=== PATIENT | male | born 1995 | race African-American/Black ===

== ENCOUNTER 2017-12-30 09:19 | Emergency (ER) | payer MEDICAID, SELFPAY ==
[2017-12-30] MEDS ORDERED: Acetaminophen 500 MG TAB ONE (10:05)
--- NOTE | 2017-12-30 10:39 | RAD ---
LEFT HAND 3 VIEWS: Date: 12/30/17 HISTORY: Left hand injury. FINDINGS: Joint spaces are preserved. No acute fracture, dislocation, or aggressive osseous erosions. Cortical remodeling of the distal scaphoid pole and well corticated fragmentation of the radial stylo id has the appearance of an old injury. IMPRESSION: No acute osseous abnormalities are demonstrated. POS: [facility]
== END 2017-12-30 10:26 | disposition home or self-care (01) ==
LOC: ERS 09:19
DX: S60.222A Contusion of left hand, initial encounter (principal); F17.210 Nicotine dependence, cigarettes, uncomplicated; W22.03XA Walked into furniture, initial encounter

== ENCOUNTER 2018-03-25 15:33 | Emergency (ER) | payer SELFPAY ==
[2018-03-25] MEDS ORDERED: Ibuprofen 200 MG TAB ONE (16:27)
--- NOTE | 2018-03-25 16:52 | RAD ---
3 VIEWS RIGHT FOOT: Date: 03/25/18 COMPARISON: None. HISTORY: Pain and swelling, foot trauma. FINDINGS: There is no displaced fracture or evidence of dislocation. No radiopaque foreign body or subcutaneous gas. IMPRESSION: No acute osseous abnormality. POS: [facility]
== END 2018-03-25 17:22 | disposition home or self-care (01) ==
LOC: ERS 15:33
DX: M25.571 Pain in right ankle and joints of right foot (principal); F17.210 Nicotine dependence, cigarettes, uncomplicated; W22.8XXA Striking against or struck by other objects, initial encounter

== ENCOUNTER 2018-04-16 16:34 | Emergency (ER) | payer SELFPAY | END 2018-04-16 17:06 | disposition home or self-care (01) | LOC: ERS 16:34 | DX: I10 Essential (primary) hypertension (principal); F17.210 Nicotine dependence, cigarettes, uncomplicated | CPT/HCPCS: 99281 ==

== ENCOUNTER 2018-09-18 11:16 | Emergency (ER) | payer SELFPAY ==
[2018-09-18] MEDS ORDERED: Lidocaine 1% w/Epinephrine 1:100K 20 ML VIAL ONE (11:50)
[2018-09-18] MEDS ORDERED: Lidocaine 1% PF 5 ML VIAL ONE (11:53)
[2018-09-18] MEDS ORDERED: Ibuprofen 800 MG TAB ONE (12:13)
== END 2018-09-18 12:18 | disposition home or self-care (01) ==
LOC: ERS 11:16
DX: L02.01 Cutaneous abscess of face (principal); F17.210 Nicotine dependence, cigarettes, uncomplicated
CPT/HCPCS: 10061; J2001

== ENCOUNTER 2018-12-05 13:11 | Emergency (ER) | payer SELFPAY | END 2018-12-05 13:19 | disposition left against medical advice (07) | LOC: ERS 13:11 | DX: Z53.21 Procedure and treatment not carried out due to patient leaving prior to being seen by health care provider (principal) ==

== ENCOUNTER 2020-05-15 09:00 | Emergency (ER) | payer SELFPAY | END 2020-05-15 09:30 | disposition home or self-care (01) | LOC: ERS 09:00 | DX: K04.7 Periapical abscess without sinus (principal); K02.9 Dental caries, unspecified; L03.211 Cellulitis of face | CPT/HCPCS: 99282 ==

== ENCOUNTER 2020-06-23 13:21 | Emergency (ER) | payer SELFPAY | END 2020-06-23 14:56 | disposition home or self-care (01) | LOC: ERS 13:21 | DX: M79.672 Pain in left foot (principal); F17.210 Nicotine dependence, cigarettes, uncomplicated | CPT/HCPCS: 99281 ==

== ENCOUNTER 2020-06-25 07:51 | Emergency (ER) | payer SELFPAY | END 2020-06-25 07:54 | disposition left against medical advice (07) | LOC: ERS 07:51 | DX: Z53.21 Procedure and treatment not carried out due to patient leaving prior to being seen by health care provider (principal) ==

== ENCOUNTER 2023-04-23 10:05 | Emergency (ER) | payer SELFPAY ==
[2023-04-23] MEDS ORDERED: Ketorolac Tromethamine 30 MG/ML VIAL ONE (11:39)
[2023-04-23] MEDS ORDERED: hydrALAZINE 10 MG TAB PO SCH (11:45)
== END 2023-04-23 13:23 | disposition home or self-care (01) ==
LOC: ERS 10:05
DX: R51.9 Headache, unspecified (principal); F41.9 Anxiety disorder, unspecified; I10 Essential (primary) hypertension; F17.210 Nicotine dependence, cigarettes, uncomplicated
CPT/HCPCS: 96372; 99283; J1885